=== PATIENT | male | born 1990 | race Caucasian/White ===

== ENCOUNTER 2017-02-25 09:45 | Emergency (ER) | payer OTHER ==
[~2017-02-25] VITALS: Ht 180.3 cm; Wt 95.7 kg
--- NOTE | 2017-02-25 12:10 | NUR ---
Patient discharged to home in stable conditon. Written and verbal after care instructions given. Patient verbalizes understanding of instructions.
== END 2017-02-25 12:11 | disposition home or self-care (01) ==
LOC: ER 09:45
DX: H00.16 Chalazion left eye, unspecified eyelid (principal); H01.006 Unspecified blepharitis left eye, unspecified eyelid; F10.20 Alcohol dependence, uncomplicated
CPT/HCPCS: A4663

== ENCOUNTER 2017-03-21 11:17 | Emergency (ER) | payer OTHER ==
[~2017-03-21] VITALS: Ht 180.3 cm; Wt 95.7 kg
--- NOTE | 2017-03-21 11:40 | NUR ---
MSE DONE BY DR GARCES AT BEDSIDE ROOM 03A.
--- NOTE | 2017-03-21 11:49 | NUR ---
Patient discharged to home in stable conditon. Written and verbal after care instructions given. Patient verbalizes understanding of instructions.
== END 2017-03-21 11:55 | disposition home or self-care (01) ==
LOC: ER 11:17
DX: S92.532A Displaced fracture of distal phalanx of left lesser toe(s), initial encounter for closed fracture (principal); F10.20 Alcohol dependence, uncomplicated; F12.10 Cannabis abuse, uncomplicated; W20.8XXA Other cause of strike by thrown, projected or falling object, initial encounter; Y93.89 Activity, other specified; Y92.89 Other specified places as the place of occurrence of the external cause; Y99.8 Other external cause status
CPT/HCPCS: 99282; A4663

== ENCOUNTER 2017-09-04 19:23 | Emergency (ER) | payer OTHER ==
[~2017-09-04] VITALS: Ht 180.3 cm; Wt 95.7 kg
--- NOTE | 2017-09-04 19:38 | NUR ---
TYLENOL 500MG X2 GIVEN
[2017-09-04] MEDS ORDERED: ACETAMINOPHEN ES 500 MG TABLET ONE ×2 (19:53→23:09)
[2017-09-04] MEDS ORDERED: ACETAMINOPHEN 325 MG TABLET PO ONE (23:00)
--- NOTE | 2017-09-04 23:01 | NUR ---
Patient discharged to home in stable conditon. Written and verbal after care instructions given. Patient verbalizes understanding of instructions. Ambulated from Er with stable gait. All belongings with patient. VSS.
[2017-09-04 23:02] VITALS: BP 116/73
== END 2017-09-04 23:03 | disposition home or self-care (01) ==
LOC: ER 19:25
DX: J45.909 Unspecified asthma, uncomplicated (principal); J11.1 Influenza due to unidentified influenza virus with other respiratory manifestations
CPT/HCPCS: A4663